=== PATIENT | male | born 1985 | race Caucasian/White ===

== ENCOUNTER 2016-12-21 14:22 | Emergency (ER) | payer BC, OTHER ==
[2016-12-21 14:46] VITALS: BP 122/83; RESP 20; TEMP 98.4
[2016-12-21] MEDS ORDERED: SODIUM CHLORIDE 0.9% 1,000 ML IV ONE (15:14)
[2016-12-21] MEDS ORDERED: RX INFO: IV CONTRAST WAS GIVEN 1 EACH MISC MISCELLANE PRN (15:18)
--- NOTE | 2016-12-21 15:33 | ED ---
General Adult HPI - General Chief complaint: Recheck/Abnormal Lab/Rx Stated complaint: abnormal labs Time Seen by Provider: 12/21/16 14:49 Source: family Mode of arrival: wheelchair Limitations: language barrier, altered mental status, physical limitation - History of Present Illness Initial comments: 11 years old male with multiple medical problems, and developmentally delayed, nonverbal and history of seizure disorder, has a history of cerebral palsy, legally blind incontinence with recurrent UTIs, anxiety, depression. Mom is the main caregiver and she is accompanying the patient she is very frustrated since he is nonverbal but he is able to tell whether he has headache or chest pain or abdominal pain he simply gets very agitated, loud and yells. Notably he is very pleasant he likes to listen to music which is quite soothing to him to be just anxious about with his mother and a quite pleasant man. But lately he has a little worse of agitation where he feels bilaterally moves in his wheelchair expressing anger mother doesn't know whether the CCP and there is pain or worsening., Some basic labs were done and primary care physician's office, it showed very low platelets denies platelets was 7 months that have been normal in the past his hemoglobin and the WBCs are relatively normal range during the his low white count and low hemoglobin that sort of for pancytopenia could've been from secondary infections medications vitamin B12 and folic acid deficiency, multiple other things like myelodysplastic syndrome and mom is seeking answers for those things. Review of system is only through the to the mom and his agitation there is no clear review of system here - Related Data Home Medications Medication Instructions Recorded Confirmed Baclofen [Lioresal] 10 mg PO TID 12/21/16 12/21/16 Ciprofloxacin HCl [Cipro] 500 mg PO Q12HR 12/21/16 12/21/16 Divalproex ER [Depakote ER] 1,000 mg PO HS 12/21/16 12/21/16 Erythromycin Ophth Oint [Romycin 1 applic RIGHT EYE QID 12/21/16 12/21/16 Ophth Oint] cloNIDine HCL [Catapres] 0.1 mg PO BID@0900,1600 12/21/16 12/21/16 cloNIDine HCL [Catapres] 0.2 mg PO HS 12/21/16 12/21/16 prednisoLONE ACETATE 1% OPHTH 1 drops RIGHT EYE TID 12/21/16 12/21/16 [Pred Forte 1%] Previous Rx's Medication Instructions Recorded Levofloxacin [Levaquin] 500 mg PO DAILY #7 tab 12/21/16 Allergies Allergy/AdvReac Type Severity Reaction Status Date / Time phenytoin sodium Allergy Rash/Hives Verified 12/21/16 15:19 [From Dilantin] phenytoin sodium extended Allergy Rash/Hives Verified 12/21/16 15:19 [From Dilantin] sulfamethoxazole Allergy Rash/Hives Verified 12/21/16 15:19 [From Bactrim] trimethoprim [From Bactrim] Allergy Rash/Hives Verified 12/21/16 15:19 Review of Systems ROS Statement: Those systems with pertinent positive or pertinent negative responses have been documented in the HPI. ROS Other: All systems not noted in ROS Statement are negative. Past Medical History Past Medical History: Seizure Disorder Additional Past Medical History / Comment(s): ceberal palsy, brain hemmorrhage with shunt, cog. impaired, blind, History of Any Multi-Drug Resistant Organisms: None Reported Past Surgical History: Hernia Repair, Orthopedic Surgery Additional Past Surgical History / Comment(s): brain shunt,eye Past Psychological History: No Psychological Hx Reported Smoking Status: Never smoker Past Alcohol Use History: None Reported Past Drug Use History: None Reported General Exam - General Exam Comments Initial Comments: General: The patient is awake and alert, noticed agitation noticed he was moving in his chair from side to side and he was quite loud but unfortunately I don't know where a specific problem Skin: Skin is warm and dry and no rashes or lesions are noted. Eye: Because of the lack of cooperation can't examine the eyes Ears, nose, mouth and throat: Mucous membranes are moist and he is drooling but unable to see the oropharynx Neck: The neck is supple, there is no tenderness Cardiovascular: There is a regular rate and rhythm. No murmur, rub or gallop is appreciated. Respiratory: To auscultation bilateral, no wheezing no rhonchi no distress respiratory khan noticed Gastrointestinal: Soft, non-distended, non-tender abdomen without masses or organomegaly noted. There is no rebound or guarding present. Bowel sounds are unremarkable. Back: There is no tenderness to palpation in the midline. There is no obvious deformity. Musculoskeletal: He is wheelchair confined Neurological: He is moving his both arms he has a spastic quadriplegia and cerebral palsy and mom thinks it hasn't changed Psychiatric: Seems agitated, angry, according to mom seems quite different. Limitations: language barrier, altered mental status, physical limitation Course Vital Signs 12/21/16 12/21/16 14:42 18:14 Temperature 98.4 F Pulse Rate 94 75 Respiratory 20 20 Rate Blood Pressure 122/83 O2 Sat by Pulse 97 98 Oximetry Called and spoke to Dr. Torrez anesthesiologist at 1530 and requested some anesthesia coverage since I wanted to do a head CT, chest CT and abdominal CT since he is developed developmentally delayed and has a spastic quadriplegia and cerebral palsy the on the safe side of one anesthesia to sedate him and I'm doing the CT read, chest and abdomen pelvis since his symptoms been going on for 3 months and without sedation motion artifact with decrease the accuracy of the CAT scans He got his labs in our ER, noticed some discrepancy, labs done in the ER today showed hemoglobin quite higher than 11.6 done yesterday at [facility] yesterday did notice that his platelets were 7 today's platelets are normal considering that I'm repeating your blood work again mom was informed about the since patient is a cerebral palsy patient Since labs were repeated, hemoglobin and platelets are normal, head CT abdominal CT and CT chest our sheet fed printer that her H seems to be right place noticed on the head CT he be started on Levaquin 500 milligrams once daily for next 7 days she'll follow-up with Dr. Olmstead for his agitation and is primary doctor for follow-up Medical Decision Making - Lab Data Result diagrams: 12/21/16 18:10 12/21/16 18:10 Lab Results 12/21/16 12/21/16 12/21/16 Range/Units 15:43 15:43 15:43 WBC 6.7 (3.8-10.6) k/uL RBC 5.30 (4.30-5.90) m/uL Hgb 16.4 (13.0-17.5) gm/dL Hct 51.5 (39.0-53.0) % MCV 97.2 (80.0-100.0) fL MCH 31.0 (25.0-35.0) pg MCHC 31.9 (31.0-37.0) g/dL RDW 13.3 (11.5-15.5) % Plt Count 269 (150-450) k/uL Neutrophils % 64 % Lymphocytes % 25 % Monocytes % 6 % Eosinophils % 1 % Basophils % 1 % Neutrophils # 4.3 (1.3-7.7) k/uL Lymphocytes # 1.7 (1.0-4.8) k/uL Monocytes # 0.4 (0-1.0) k/uL Eosinophils # 0.1 (0-0.7) k/uL Basophils # 0.0 (0-0.2) k/uL PT (9.0-12.0) sec INR (<1.2) APTT (22.0-30.0) sec Sodium 141 (137-145) mmol/L Potassium 4.8 (3.5-5.1) mmol/L Chloride 103 (98-107) mmol/L Carbon Dioxide 25 (22-30) mmol/L Anion Gap 13 mmol/L BUN 14 (9-20) mg/dL Creatinine 1.06 (0.66-1.25) mg/dL Est GFR (MDRD) Af Amer >60 (>60 ml/min/1.73 sqM) Est GFR (MDRD) Non-Af >60 (>60 ml/min/1.73 sqM) Glucose 87 (74-99) mg/dL Calcium 9.3 (8.4-10.2) mg/dL Total Bilirubin 0.3 (0.2-1.3) mg/dL AST 25 (17-59) U/L ALT 49 (21-72) U/L Alkaline Phosphatase 73 (38-126) U/L Ammonia (<30) umol/L Total Creatine Kinase 104 (55-170) U/L CK-MB (CK-2) 0.9 (0.0-2.4) ng/mL CK-MB (CK-2) Rel Index 0.9 Troponin I <0.012 (0.000-0.034) ng/mL Total Protein 7.3 (6.3-8.2) g/dL Albumin 4.1 (3.5-5.0) g/dL Urine Color Urine Appearance (Clear) Urine pH (5.0-8.0) Ur Specific [place] (1.001-1.035) Urine Protein (Negative) Urine Glucose (UA) (Negative) Urine Ketones (Negative) Urine Blood (Negative) Urine Nitrite (Negative) Urine Bilirubin (Negative) Urine Urobilinogen (<2.0) mg/dL Ur Leukocyte Esterase (Negative) Urine Opiates Screen (NotDetected) Ur Oxycodone Screen (NotDetected) Urine Methadone Screen (NotDetected) Ur Propoxyphene Screen (NotDetected) Ur Barbiturates Screen (NotDetected) U Tricyclic Antidepress (NotDetected) Ur Phencyclidine Scrn (NotDetected) Ur Amphetamines Screen (NotDetected) U Methamphetamines Scrn (NotDetected) U Benzodiazepines Scrn (NotDetected) Urine Cocaine Screen (NotDetected) U Marijuana (THC) Screen (NotDetected) Blood Type Blood Type Recheck Antibody Screen Spec Expiration Date 12/21/16 12/21/16 12/21/16 Range/Units 15:43 15:43 15:43 WBC (3.8-10.6) k/uL RBC (4.30-5.90) m/uL Hgb (13.0-17.5) gm/dL Hct (39.0-53.0) % MCV (80.0-100.0) fL MCH (25.0-35.0) pg MCHC (31.0-37.0) g/dL RDW (11.5-15.5) % Plt Count (150-450) k/uL Neutrophils % % Lymphocytes % % Monocytes % % Eosinophils % % Basophils % % Neutrophils # (1.3-7.7) k/uL Lymphocytes # (1.0-4.8) k/uL Monocytes # (0-1.0) k/uL Eosinophils # (0-0.7) k/uL Basophils # (0-0.2) k/uL PT 10.2 (9.0-12.0) sec INR 1.0 (<1.2) APTT 23.7 (22.0-30.0) sec Sodium (137-145) mmol/L Potassium (3.5-5.1) mmol/L Chloride (98-107) mmol/L Carbon Dioxide (22-30) mmol/L Anion Gap mmol/L BUN (9-20) mg/dL Creatinine (0.66-1.25) mg/dL Est GFR (MDRD) Af Amer (>60 ml/min/1.73 sqM) Est GFR (MDRD) Non-Af (>60 ml/min/1.73 sqM) Glucose (74-99) mg/dL Calcium (8.4-10.2) mg/dL Total Bilirubin (0.2-1.3) mg/dL AST (17-59) U/L ALT (21-72) U/L Alkaline Phosphatase (38-126) U/L Ammonia 13 (<30) umol/L Total Creatine Kinase (55-170) U/L CK-MB (CK-2) (0.0-2.4) ng/mL CK-MB (CK-2) Rel Index Troponin I (0.000-0.034) ng/mL Total Protein (6.3-8.2) g/dL Albumin (3.5-5.0) g/dL Urine Color Urine Appearance (Clear) Urine pH (5.0-8.0) Ur Specific [place] (1.001-1.035) Urine Protein (Negative) Urine Glucose (UA) (Negative) Urine Ketones (Negative) Urine Blood (Negative) Urine Nitrite (Negative) Urine Bilirubin (Negative) Urine Urobilinogen (<2.0) mg/dL Ur Leukocyte Esterase (Negative) Urine Opiates Screen (NotDetected) Ur Oxycodone Screen (NotDetected) Urine Methadone Screen (NotDetected) Ur Propoxyphene Screen (NotDetected) Ur Barbiturates Screen (NotDetected) U Tricyclic Antidepress (NotDetected) Ur Phencyclidine Scrn (NotDetected) Ur Amphetamines Screen (NotDetected) U Methamphetamines Scrn (NotDetected) U Benzodiazepines Scrn (NotDetected) Urine Cocaine Screen (NotDetected) U Marijuana (THC) Screen (NotDetected) Blood Type O Positive Blood Type Recheck No Antibody Screen NEGATIVE Spec Expiration Date 12/24/2016 - 234212/21/16 12/21/16 12/21/16 Range/Units 17:40 18:10 18:10 WBC 6.1 (3.8-10.6) k/uL RBC 5.02 (4.30-5.90) m/uL Hgb 15.4 (13.0-17.5) gm/dL Hct 49.9 (39.0-53.0) % MCV 99.5 (80.0-100.0) fL MCH 30.7 (25.0-35.0) pg MCHC 30.9 L (31.0-37.0) g/dL RDW 13.2 (11.5-15.5) % Plt Count 220 (150-450) k/uL Neutrophils % % Lymphocytes % % Monocytes % % Eosinophils % % Basophils % % Neutrophils # (1.3-7.7) k/uL Lymphocytes # (1.0-4.8) k/uL Monocytes # (0-1.0) k/uL Eosinophils # (0-0.7) k/uL Basophils # (0-0.2) k/uL PT (9.0-12.0) sec INR (<1.2) APTT (22.0-30.0) sec Sodium 140 (137-145) mmol/L Potassium 5.1 (3.5-5.1) mmol/L Chloride 107 (98-107) mmol/L Carbon Dioxide 22 (22-30) mmol/L Anion Gap 11 mmol/L BUN 15 (9-20) mg/dL Creatinine 0.94 (0.66-1.25) mg/dL Est GFR (MDRD) Af Amer >60 (>60 ml/min/1.73 sqM) Est GFR (MDRD) Non-Af >60 (>60 ml/min/1.73 sqM) Glucose 86 (74-99) mg/dL Calcium 9.0 (8.4-10.2) mg/dL Total Bilirubin 0.4 (0.2-1.3) mg/dL AST 25 (17-59) U/L ALT 47 (21-72) U/L Alkaline Phosphatase 75 (38-126) U/L Ammonia (<30) umol/L Total Creatine Kinase (55-170) U/L CK-MB (CK-2) (0.0-2.4) ng/mL CK-MB (CK-2) Rel Index Troponin I (0.000-0.034) ng/mL Total Protein 6.7 (6.3-8.2) g/dL Albumin 3.8 (3.5-5.0) g/dL Urine Color Yellow Urine Appearance Clear (Clear) Urine pH 7.0 (5.0-8.0) Ur Specific [place] 1.035 (1.001-1.035) Urine Protein Trace H (Negative) Urine Glucose (UA) Negative (Negative) Urine Ketones Trace H (Negative) Urine Blood Negative (Negative) Urine Nitrite Negative (Negative) Urine Bilirubin Negative (Negative) Urine Urobilinogen 3.0 (<2.0) mg/dL Ur Leukocyte Esterase Negative (Negative) Urine Opiates Screen Not Detected (NotDetected) Ur Oxycodone Screen Not Detected (NotDetected) Urine Methadone Screen Not Detected (NotDetected) Ur Propoxyphene Screen Not Detected (NotDetected) Ur Barbiturates Screen Not Detected (NotDetected) U Tricyclic Antidepress Not Detected (NotDetected) Ur Phencyclidine Scrn Not Detected (NotDetected) Ur Amphetamines Screen Not Detected (NotDetected) U Methamphetamines Scrn Not Detected (NotDetected) U Benzodiazepines Scrn Not Detected (NotDetected) Urine Cocaine Screen Not Detected (NotDetected) U Marijuana (THC) Screen Not Detected (NotDetected) Blood Type Blood Type Recheck Antibody Screen Spec Expiration Date Disposition Clinical Impression: Encephalitis, Agitation Disposition: HOME SELF-CARE Condition: Good Instructions: Depression (ED) Additional Instructions: She is advised to stop the Cipro and start the Levaquin hopefully that would cover his respiratory disease as well as cystitis Prescriptions: Levofloxacin [Levaquin] 500 mg PO DAILY #7 tab Referrals: Daren Torres MD [Primary Care Provider] - 1-2 days
[2016-12-21 16:29] LABS: Basophils % (A) 1 %; CH 31.3; CHCM 32.4; Eosinophils # (A) 0.1 k/uL (0-0.7); Eosinophils % (A) 1 %; HCT 51.5 % (39.0-53.0); HDW 2.41; HGB 16.4 gm/dL (13.0-17.5); Luc # (Auto) 0.21; Luc % (Auto) 3; Lymphocytes # (A) 1.7 k/uL (1.0-4.8); Lymphocytes % (A) 25 %; MCHC 31.9 g/dL (31.0-37.0); MCV 97.2 fL (80.0-100.0); Mean Platelet Volume 7.1; Monocytes # (A) 0.4 k/uL (0-1.0); Monocytes % (A) 6 %; Neutrophils # (A) 4.3 k/uL (1.3-7.7); Neutrophils % (A) 64 %; RDW 13.3 % (11.5-15.5); WBC 6.7 k/uL (3.8-10.6); WBC (Perox) 5.99
[2016-12-21 16:39] LABS: Partial Thromboplastin Time 23.7 sec (22.0-30.0)
[2016-12-21 16:45] LABS: ALT 49 U/L (21-72); AST 25 U/L (17-59); Alkaline Phosphatase 73 U/L (38-126); Anion Gap 13 mmol/L; Blood Urea Nitrogen 14 mg/dL (9-20); Calcium 9.3 mg/dL (8.4-10.2); Carbon Dioxide 25 mmol/L (22-30); Chloride 103 mmol/L (98-107); Glucose 87 mg/dL (74-99); Non-African American GFR(MDRD) >60 (>60 ml/min/1.73 sqM); Potassium 4.8 mmol/L (3.5-5.1); Sodium 141 mmol/L (137-145); Total Bilirubin 0.3 mg/dL (0.2-1.3); Total Protein 7.3 g/dL (6.3-8.2)
[2016-12-21 16:48] LABS: Creatine Kinase 104 U/L (55-170)
[2016-12-21 16:50] LABS: Prothrombin Time 10.2 sec (9.0-12.0)
[2016-12-21] MEDS ORDERED: MIDAZOLAM 2 MG/2 ML VIAL ONE (16:57)
[2016-12-21] MEDS ORDERED: fentaNYL (PF) 50 MCG/ML 2 ML AMP ONE (16:57)
[2016-12-21 17:01] LABS: Creatine Kinase MB 0.9 ng/mL (0.0-2.4); Troponin I <0.012 ng/mL (0.000-0.034)
--- NOTE | 2016-12-21 17:51 | CT ---
EXAMINATION TYPE: CT brain wo con DATE OF EXAM: 12/21/2016 COMPARISON: 01/07/2014 HISTORY: Behavioral changes CT DLP: 1090.4 mGycm. Automated Exposure Control for Dose Reduction was Utilized. TECHNIQUE: CT scan of the head is performed without contrast. FINDINGS: There is left occipital peritoneal shunt catheter with the tip in the left lateral ventri mikayla. There is no significant hydrocephalus. Left ventricle is larger than the right. Midline is shift ed slightly to the left side. There is left hemisphere cerebral atrophy. Calvarium is intact. There i s some prominence of the occipital horn left lateral ventricle consistent with occipital atrophy. The re is no evidence of intracranial hemorrhage. CONCLUSION: Ventriculoperitoneal shunt catheter appears in good position. Left hemisphere atrophy or hypoplasia. No acute intracranial abnormality. No change compared to old exam.
--- NOTE | 2016-12-21 17:55 | CT ---
EXAMINATION TYPE: CT ChestAbdPelvis w con DATE OF EXAM: 12/21/2016 COMPARISON: NONE HISTORY: Abnormal labs pain CT DLP: 1328.6 mGycm Automated exposure control for dose reduction was used. CONTRAST: CT scan of the chest, abdomen and pelvis is performed without Oral Contrast and with IV Contrast, pat ient injected with 100 mL of Omnipaque 300. FINDINGS: There is mild pulmonary emphysema. There is no pleural effusion. There is no evidence of a pulmonary mass. There is some coarsening of interstitial markings in the lower lung ceballos. There is no mediast inal adenopathy. There are no hilar masses. The bony thorax is intact. Liver spleen gallbladder appear normal. Bile ducts are not dilated. There is no sign of a pancreatic mass. There is no adrenal mass. Left kidney is smaller than the right, there is compensatory hypertrophy of the right kidney. There is no retroperitoneal adenopathy. There is no hydronephrosis. Appendix appea rs normal. There is no sign of a bowel obstruction. There is no ascites. The bladder distends smoothl y. There is no sign of a pelvic mass. I see no bony destructive process. Ventriculoperitoneal shunt c atheter is noted. IMPRESSION: Mild interstitial pulmonary infiltrates in the lower lobes. Mild pulmonary emphysema. No sign of acute abdomen and pelvis. 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
--- NOTE | 2016-12-21 18:05 | XR ---
EXAMINATION TYPE: XR chest 2V DATE OF EXAM: 12/21/2016 COMPARISON: 02/01/1714 HISTORY: Chest pain and altered mental status TECHNIQUE: Frontal and lateral views of the chest are obtained. FINDINGS: There is no heart failure nor confluent pneumonic infiltrate. There are no hilar masses. T here is ventriculoperitoneal shunt catheter on the left side. Costophrenic angles are clear. IMPRESSION: No active cardiopulmonary disease. No change. Normal heart.
[2016-12-21 18:14] LABS: Appearance,Urine Clear (Clear); Bilirubin,Urine Negative (Negative); Glucose,Urine (UA) Negative (Negative); Ketones,Urine Trace (Negative); Leukocyte Esterase,Urine Negative (Negative); Nitrite,Urine Negative (Negative); Protein,Urine Trace (Negative); Specific Gravity,Urine 1.035 (1.001-1.035); UA Billing (MACRO vs. MICRO) CHEM
[2016-12-21 18:15] VITALS: PULSE 75
[2016-12-21 18:27] LABS: CH 31.1; CHCM 31.4; HCT 49.9 % (39.0-53.0); HGB 15.4 gm/dL (13.0-17.5); MCH 30.7 pg (25.0-35.0); MCHC 30.9 g/dL (31.0-37.0); MCV 99.5 fL (80.0-100.0); Mean Platelet Volume 7.2; RBC 5.02 m/uL (4.30-5.90); RDW 13.2 % (11.5-15.5); WBC 6.1 k/uL (3.8-10.6)
[2016-12-21 18:46] LABS: ALT 47 U/L (21-72); AST 25 U/L (17-59); Alkaline Phosphatase 75 U/L (38-126); Anion Gap 11 mmol/L; Blood Urea Nitrogen 15 mg/dL (9-20); Carbon Dioxide 22 mmol/L (22-30); Chloride 107 mmol/L (98-107); Glucose 86 mg/dL (74-99); Non-African American GFR(MDRD) >60 (>60 ml/min/1.73 sqM); Potassium 5.1 mmol/L (3.5-5.1); Sodium 140 mmol/L (137-145); Total Bilirubin 0.4 mg/dL (0.2-1.3); Total Protein 6.7 g/dL (6.3-8.2)
== END 2016-12-21 19:48 | disposition home or self-care (01) ==
LOC: EC 14:22 → EEVIPCON 14:22 → EC 19:48
DX: G04.90 Encephalitis and encephalomyelitis, unspecified (principal); R45.1 Restlessness and agitation; H54.8 Legal blindness, as defined in USA; Z86.69 Personal history of other diseases of the nervous system and sense organs; Z98.2 Presence of cerebrospinal fluid drainage device; Z79.899 Other long term (current) drug therapy; Z88.2 Allergy status to sulfonamides; Z88.8 Allergy status to other drugs, medicaments and biological substances
CPT/HCPCS: 99284; 96360; 96361 ×2; 36415; 86900; 86901; 80053; 82140; 82550; 82553; 84484; 85025; 85027; 85610; 85730; 86850; 81003; 80306; 87086; 71020; 70450; 71260; 74177; J2250; J3010; Q9967

== ENCOUNTER 2018-07-04 07:57 | Day surgery (SDC) | payer BC, OTHER ==
[~2018-07-04 07:57] MED LIST: ALPRAZolam 1 MG TAB PO STA; LIDOCAINE 1% 20 ML VIAL (10MG/ML) FOR IV START INTRADERMA PRN
[2018-07-04] MEDS ORDERED: MIDAZOLAM 2 MG/2 ML VIAL ONE (08:45)
[2018-07-04] MEDS ORDERED: LIDOCAINE 1% INJ 10MG/ML (20 ML MDV) ONE (08:45)
[2018-07-04] MEDS ORDERED: PROPOFOL 10 MG/ML 20 ML VIAL IV ONE (08:45)
[2018-07-04] MEDS: LACTATED RINGERS 1,000 ML IV SCH ×2 (08:50→08:55)
[2018-07-04] MEDS ORDERED: BENZOCAINE SPRAY 1 CAN TOPICAL ONE (08:50)
[2018-07-04 09:11] VITALS: TEMP 97.9
[2018-07-04] MEDS ORDERED: IV FLUID CONTINUATION 1,000 ML IV ONE (09:25)
[2018-07-04 09:28] VITALS: BP 110/70; PULSE 98
[2018-07-04 09:51] VITALS: RESP 20
--- NOTE | 2018-07-04 18:42 | US ---
EXAMINATION TYPE: US abdomen comp/pelvis limited DATE OF EXAM: 07/04/2018 COMPARISON: CT 12/21/2016 CLINICAL HISTORY: R74.8 ELEVATED LIVER ENZYMES. Frequent UTI. Difficult and limited exam due to patie nt being under anesthesia. EXAM MEASUREMENTS: Liver Length: 13.2 cm Gallbladder Wall: 0.2 cm CBD: 0.3 cm Spleen: 12.1 cm Right Kidney: 10.7 x 5.4 x 4.8 cm Left Kidney: 5.4 x 2.6 x 2.6 cm Pancreas: Obscured by bowel gas Liver: Heterogeneous Gallbladder: wnl as visualized CBD: wnl as visualized Spleen: wnl Right Kidney: Hyperechoic area visualized upper pole measuring 1.2 x 1.1 x 1.3 cm Left Kidney: Measuring small. Limited visualization Upper IVC: wnl as visualized Abd Aorta: Proximal portion appears wnl, mid/distal obscured by bowel gas Bladder: wnl Bilateral Jets Seen Yes IMPRESSION: Markedly atrophic or hypoplastic left kidney. No evidence of renal obstruction. No gallst ones or dilated ducts.
== END 2018-07-04 09:52 | disposition home or self-care (01) ==
LOC: PROCWHC3 07:57 → EDSTATUS 09:00 → PROCWHC3 09:52
PROVIDERS: ATTEND Anesthesiology
DX: R74.8 Abnormal levels of other serum enzymes (principal); N39.0 Urinary tract infection, site not specified; Q60.3 Renal hypoplasia, unilateral; G80.0 Spastic quadriplegic cerebral palsy
CPT/HCPCS: 76700; 76857; J2250; J2001; J2704

== ENCOUNTER 2018-07-11 17:49 | Emergency (ER) | payer BC, OTHER ==
[2018-07-11] MEDS ORDERED: ONDANSETRON 4 MG/2 ML VIAL IVP STA (18:16)
[2018-07-11] MEDS ORDERED: SODIUM CHLORIDE 0.9% 1,000 ML IV STA ×2 (18:16)
[2018-07-11] MEDS ORDERED: MORPHINE SULFATE 4 MG/ML SYRINGE IV STA (18:16)
[2018-07-11] MEDS ORDERED: LORazepam 2 MG/ML INJ IM STA (18:18)
[2018-07-11] MEDS ORDERED: HYDROmorphone 1 MG/ML 1 ML SYRINGE IM STA (18:36)
[2018-07-11 19:14] LABS: Basophils # (A) 0.1 k/uL (0-0.2); Basophils % (A) 1 %; Eosinophils # (A) 0.1 k/uL (0-0.7); Eosinophils % (A) 1 %; HCT 46.9 % (39.0-53.0); HGB 15.2 gm/dL (13.0-17.5); Lymphocytes % (A) 29 %; MCH 29.2 pg (25.0-35.0); MCHC 32.5 g/dL (31.0-37.0); MCV 89.8 fL (80.0-100.0); Mean Platelet Volume 6.8; Monocytes # (A) 0.4 k/uL (0-1.0); Monocytes % (A) 6 %; Neutrophils # (A) 4.1 k/uL (1.3-7.7); Neutrophils % (A) 61 %; Platelet Count 389 k/uL (150-450); RBC 5.22 m/uL (4.30-5.90); RDW 13.5 % (11.5-15.5); WBC 6.8 k/uL (3.8-10.6)
--- NOTE | 2018-07-11 19:14 | ED ---
General Adult HPI - General Source: patient, EMS, RN notes reviewed, old records reviewed Mode of arrival: EMS Limitations: language barrier, physical limitation <Elana Bishop - Last Filed: 07/11/18 21:46> <Ezra Amador - Last Filed: 07/12/18 16:46> - General Chief complaint: Recheck/Abnormal Lab/Rx Stated complaint: Pain Time Seen by Provider: 07/11/18 18:03 - History of Present Illness Initial comments: Patient is a 33-year-old male multiple medical problems, developmental delayed, nonverbal. History of seizure disorder, cerebral palsy, is legally blind with incontinence. He said frequent urinary tract infections and recently been taking Cipro. Patient's mom is here with Patient is he's been complaining yelling in pain intermittently for the past 3 weeks. Over the past 24-48 hours and spent persistent. Patient is very agitated and become more loud and yells. Patient's mother initially thought it could be related to anxiety however with multiple distracted activities Patient continuously L and pain. Patient reportedly had elevated liver enzymes for the past lab draw a few weeks ago. Patient's also had multiple eye surgeries, and has been rubbing his left eye. Mother reports that he has not had any significant drainage. She hasn't noticed he is doing this more frequent lately just because of crying from pain. (Elana Bishop) - Related Data Home Medications Medication Instructions Recorded Confirmed Ciprofloxacin HCl [Cipro] 500 mg PO Q12HR 12/21/16 07/11/18 Erythromycin Ophth Oint [Romycin 1 applic RIGHT EYE QID 12/21/16 07/11/18 Ophth Oint] cloNIDine HCL [Catapres] 0.2 mg PO TID 12/21/16 07/11/18 ARIPiprazole [Abilify] 10 mg PO DAILY 07/03/18 07/11/18 Acetaminophen [Tylenol Extra 1,000 mg PO Q6H PRN 07/11/18 07/11/18 Strength] Ciprofloxacin HCl [Ciloxan 0.3%] 1 drops BOTH EYES TID 07/11/18 07/11/18 hydrOXYzine PAMOATE [Vistaril] 25 mg PO TID PRN 07/11/18 07/11/18 Allergies Allergy/AdvReac Type Severity Reaction Status Date / Time phenytoin sodium Allergy Rash/Hives Verified 07/11/18 18:24 [From Dilantin] phenytoin sodium extended Allergy Rash/Hives Verified 07/11/18 18:24 [From Dilantin] Sulfa (Sulfonamide Allergy Rash/Hives Verified 07/11/18 18:24 Antibiotics) sulfamethoxazole Allergy Rash/Hives Verified 07/11/18 18:24 [From Bactrim] trimethoprim [From Bactrim] Allergy Rash/Hives Verified 07/11/18 18:24 Review of Systems ROS Other: All systems not noted in ROS Statement are negative. <Elana Bishop - Last Filed: 07/11/18 21:46> ROS Other: All systems not noted in ROS Statement are negative. <Ezra Amador - Last Filed: 07/12/18 16:46> ROS Statement: Those systems with pertinent positive or pertinent negative responses have been documented in the HPI. Past Medical History Past Medical History: Seizure Disorder Additional Past Medical History / Comment(s): CURRENT: UTI & RIGHT EYE INFECTION. WHEELCHAIR BOUND. ceberal palsy, brain hemmorrhage with shunt, cog. impaired, blind. History of Any Multi-Drug Resistant Organisms: None Reported Past Surgical History: Hernia Repair, Orthopedic Surgery Additional Past Surgical History / Comment(s): HAM STRING RELASES. TOE RECONSTRUCTIONS (ATROPHY). Brain shunt. Eye Past Anesthesia/Blood Transfusion Reactions: No Reported Reaction Past Psychological History: No Psychological Hx Reported Smoking Status: Never smoker Past Alcohol Use History: None Reported Past Drug Use History: None Reported - Past Family History Mother Family Medical History: No Reported History <Elana Bishop - Last Filed: 07/11/18 21:46> General Exam Limitations: language barrier, physical limitation Head exam: Present: atraumatic, normocephalic, normal inspection Eye exam: Present: normal appearance, PERRL, EOMI. Absent: scleral icterus, conjunctival injection, periorbital swelling ENT exam: Present: normal exam, mucous membranes moist Neck exam: Present: normal inspection. Absent: tenderness, meningismus, lymphadenopathy Respiratory exam: Present: normal lung sounds bilaterally. Absent: respiratory distress, wheezes, rales, rhonchi, stridor Cardiovascular Exam: Present: regular rate, normal rhythm, normal heart sounds. Absent: systolic murmur, diastolic murmur, rubs, gallop, clicks GI/Abdominal exam: Present: soft, normal bowel sounds. Absent: distended, tende rness, guarding, rebound, rigid Extremities exam: Present: normal inspection, full ROM, normal capillary refill. Absent: tenderness, pedal edema, joint swelling, calf tenderness Back exam: Present: normal inspection Neurological exam: Present: alert, oriented X3, CN II-XII intact Psychiatric exam: Present: normal affect, normal mood Skin exam: Present: warm, dry, intact, normal color. Absent: rash <Elana Bishop - Last Filed: 07/11/18 21:46> - General Exam Comments Initial Comments: 33-year-old male, developmentally delayed. Yelling intermittently for agitation. (Elana Bishop) Course Vital Signs 07/11/18 07/11/18 07/11/18 18:00 20:05 20:10 Temperature Pulse Rate 103 H 104 H 78 Respiratory 18 19 18 Rate Blood Pressure 159/108 137/87 140/82 O2 Sat by Pulse 95 97 100 Oximetry 07/11/18 07/11/18 07/11/18 20:16 20:20 20:35 Temperature Pulse Rate 68 91 104 H Respiratory 17 17 18 Rate Blood Pressure 147/78 156/100 159/109 O2 Sat by Pulse 100 100 98 Oximetry 07/11/18 07/11/18 07/11/18 21:16 21:25 22:15 Temperature 98.7 F Pulse Rate 102 H 118 H Respiratory 17 18 Rate Blood Pressure 149/95 149/95 O2 Sat by Pulse 96 98 Oximetry Procedures - Procedural Sedation Procedural Sedation Start Time: 20:09 Procedural Sedation Stop Time: 20:40 Indications: diagnostic imaging procedure ASA Class: I Mallampati Airway Score: 2 Preparation: teletypesetter monitor applied, pulse oximeter, capnometry used IV Etomidate Dose (mgs): 15 Complications: none Patient Tolerated Procedure: well <Ezra Amador - Last Filed: 07/12/18 16:46> Medical Decision Making - Lab Data Result diagrams: 07/11/18 18:59 07/11/18 18:59 - Radiology Data Radiology results: report reviewed <Elana Bishop - Last Filed: 07/11/18 21:46> - Lab Data Result diagrams: 07/11/18 18:59 07/11/18 18:59 <Ezra Amador - Last Filed: 07/12/18 16:46> - Lab Data Lab Results 07/11/18 07/11/18 07/11/18 Range/Units 18:59 18:59 18:59 WBC 6.8 (3.8-10.6) k/uL RBC 5.22 (4.30-5.90) m/uL Hgb 15.2 (13.0-17.5) gm/dL Hct 46.9 (39.0-53.0) % MCV 89.8 (80.0-100.0) fL MCH 29.2 (25.0-35.0) pg MCHC 32.5 (31.0-37.0) g/dL RDW 13.5 (11.5-15.5) % Plt Count 389 (150-450) k/uL Neutrophils % 61 % Lymphocytes % 29 % Monocytes % 6 % Eosinophils % 1 % Basophils % 1 % Neutrophils # 4.1 (1.3-7.7) k/uL Lymphocytes # 2.0 (1.0-4.8) k/uL Monocytes # 0.4 (0-1.0) k/uL Eosinophils # 0.1 (0-0.7) k/uL Basophils # 0.1 (0-0.2) k/uL PT 9.6 (9.0-12.0) sec INR 0.9 (<1.2) APTT 23.4 (22.0-30.0) sec Sodium 139 (137-145) mmol/L Potassium 4.4 (3.5-5.1) mmol/L Chloride 104 (98-107) mmol/L Carbon Dioxide 25 (22-30) mmol/L Anion Gap 10 mmol/L BUN 10 (9-20) mg/dL Creatinine 0.88 (0.66-1.25) mg/dL Est GFR (CKD-EPI)AfAm >90 (>60 ml/min/1.73 sqM) Est GFR (CKD-EPI)NonAf >90 (>60 ml/min/1.73 sqM) Glucose 100 H (74-99) mg/dL Calcium 9.4 (8.4-10.2) mg/dL Total Bilirubin 0.7 (0.2-1.3) mg/dL AST 36 (17-59) U/L ALT 52 (21-72) U/L Alkaline Phosphatase 134 H (38-126) U/L Total Protein 7.3 (6.3-8.2) g/dL Albumin 4.5 (3.5-5.0) g/dL Amylase 117 H (30-110) U/L Lipase 107 (23-300) U/L Urine Color Urine Appearance (Clear) Urine pH (5.0-8.0) Ur Specific [place] (1.001-1.035) Urine Protein (Negative) Urine Glucose (UA) (Negative) Urine Ketones (Negative) Urine Blood (Negative) Urine Nitrite (Negative) Urine Bilirubin (Negative) Urine Urobilinogen (<2.0) mg/dL Ur Leukocyte Esterase (Negative) 07/11/18 Range/Units 20:32 WBC (3.8-10.6) k/uL RBC (4.30-5.90) m/uL Hgb (13.0-17.5) gm/dL Hct (39.0-53.0) % MCV (80.0-100.0) fL MCH (25.0-35.0) pg MCHC (31.0-37.0) g/dL RDW (11.5-15.5) % Plt Count (150-450) k/uL Neutrophils % % Lymphocytes % % Monocytes % % Eosinophils % % Basophils % % Neutrophils # (1.3-7.7) k/uL Lymphocytes # (1.0-4.8) k/uL Monocytes # (0-1.0) k/uL Eosinophils # (0-0.7) k/uL Basophils # (0-0.2) k/uL PT (9.0-12.0) sec INR (<1.2) APTT (22.0-30.0) sec Sodium (137-145) mmol/L Potassium (3.5-5.1) mmol/L Chloride (98-107) mmol/L Carbon Dioxide (22-30) mmol/L Anion Gap mmol/L BUN (9-20) mg/dL Creatinine (0.66-1.25) mg/dL Est GFR (CKD-EPI)AfAm (>60 ml/min/1.73 sqM) Est GFR (CKD-EPI)NonAf (>60 ml/min/1.73 sqM) Glucose (74-99) mg/dL Calcium (8.4-10.2) mg/dL Total Bilirubin (0.2-1.3) mg/dL AST (17-59) U/L ALT (21-72) U/L Alkaline Phosphatase (38-126) U/L Total Protein (6.3-8.2) g/dL Albumin (3.5-5.0) g/dL Amylase (30-110) U/L Lipase (23-300) U/L Urine Color Light Yellow Urine Appearance Clear (Clear) Urine pH 6.0 (5.0-8.0) Ur Specific [place] 1.021 (1.001-1.035) Urine Protein Negative (Negative) Urine Glucose (UA) Negative (Negative) Urine Ketones Negative (Negative) Urine Blood Negative (Negative) Urine Nitrite Negative (Negative) Urine Bilirubin Negative (Negative) Urine Urobilinogen <2.0 (<2.0) mg/dL Ur Leukocyte Esterase Negative (Negative) 07/11/18 20:45 EKG performed at 20/20 forces or sinus rhythm normal EKG. Ventricular rate of 87 bpm. CA interval is 186 ms. QRS duration 84 ms. QT QTC 370/445 ms. (Elana Bishop) - Radiology Data CT of the head and C-spine are negative for any acute fracture dislocation. No acute intracranial hemorrhage. There is shunt catheter for left posterior approach, similar compared to prior CT and 12/21/2016. The ventricles and sulcal pattern and sister nose are normal. (Elana Bishop) Disposition Is patient prescribed a controlled substance at d/c from ED?: No Time of Disposition: 21:49 <Elana Bishop - Last Filed: 07/11/18 21:46> <Ezra Amador - Last Filed: 07/12/18 16:46> Clinical Impression: Cognitive and behavioral changes, Muscle contracture Disposition: HOME SELF-CARE Condition: Good Additional Instructions: Follow-up with your primary care doctor tomorrow. Return to the emergency department if any alarming signs or symptoms occur. Monitor for any fevers. Continue taking Motrin and Tylenol. Referrals: Daren Torres MD [Primary Care Provider] - 1-2 days
[2018-07-11 19:18] LABS: ALT 52 U/L (21-72); AST 36 U/L (17-59); Albumin 4.5 g/dL (3.5-5.0); Alkaline Phosphatase 134 U/L (38-126); Amylase 117 U/L (30-110); Anion Gap 10 mmol/L; Blood Urea Nitrogen 10 mg/dL (9-20); Calcium 9.4 mg/dL (8.4-10.2); Carbon Dioxide 25 mmol/L (22-30); Chloride 104 mmol/L (98-107); Glucose 100 mg/dL (74-99); Lipase 107 U/L (23-300); Potassium 4.4 mmol/L (3.5-5.1); Sodium 139 mmol/L (137-145); Total Bilirubin 0.7 mg/dL (0.2-1.3); Total Protein 7.3 g/dL (6.3-8.2)
[2018-07-11 19:21] LABS: INR 0.9 (<1.2); Partial Thromboplastin Time 23.4 sec (22.0-30.0); Prothrombin Time 9.6 sec (9.0-12.0)
[2018-07-11] MEDS: ETOMIDATE 2 MG/ML 10 ML VIAL IVP STA ×2 (20:09→20:15)
[2018-07-11 20:40] LABS: Appearance,Urine Clear (Clear); Bilirubin,Urine Negative (Negative); Blood,Urine Negative (Negative); Color,Urine Light Yellow; Glucose,Urine (UA) Negative (Negative); Ketones,Urine Negative (Negative); Leukocyte Esterase,Urine Negative (Negative); Nitrite,Urine Negative (Negative); Protein,Urine Negative (Negative); Specific Gravity,Urine 1.021 (1.001-1.035); Urobilinogen,Urine <2.0 mg/dL (<2.0)
[2018-07-11 21:17] VITALS: BP 149/95
--- NOTE | 2018-07-11 21:19 | CT ---
EXAMINATION TYPE: CT brain cspine wo con DATE OF EXAM: 07/11/2018 COMPARISON: 12/21/2016 HISTORY: Pain CT DLP: 1485.4 mGycm Automated exposure control for dose reduction was used. TECHNIQUE: CT scan of the head and cervical spine are performed without contrast. FINDINGS: Shunt catheter enters from a left posterior approach to have its tip in the subarachnoid sp annabella 1 cm left of the interhemispheric falx, superior to the lateral ventricles. This is similar when compared to the prior CT of 12/21/2016. Also similar when compared to the prior study of the ventricle s and sulcal pattern and basal cisterns. There is no acute intracranial hemorrhage, mass effect, or m idline shift identified. The paranasal sinuses and middle ear cavities and mastoid sinus air cells ar e clear. Cervical spine is visualized in its entirety from C1 through upper thoracic levels and demonstrates s atisfactory alignment without evidence of acute fracture or dislocation. Prevertebral soft tissue ap pears within normal limits. The C1-C2 articulation is unremarkable. IMPRESSION: 1. There is no acute fracture or dislocation evident in the cervical spine. 2. No acute intracranial hemorrhage, mass effect, or midline shift is seen.
[2018-07-11 21:26] VITALS: TEMP 98.7
--- NOTE | 2018-07-11 21:28 | CT ---
EXAMINATION TYPE: CT ChestAbdPelvis w con DATE OF EXAM: 07/11/2018 COMPARISON: 12/21/2016 HISTORY: pain CT DLP: 1051 mGy-cm Automated exposure control for dose reduction was used. IV CONTRAST: 100 mL of Isovue 300. FINDINGS: LUNGS: The lungs are grossly clear, there is no concerning parenchymal mass or nodule identified. The re is no pleural effusion or pneumothorax seen. The tracheobronchial tree is patent. MEDIASTINUM: There are no greater than 1 cm hilar or mediastinal lymph nodes. There is mild cardiomeg nenita. There is no pericardial effusion. No acute aortic or pulmonary arterial findings. OTHER: No additional significant abnormality is seen. PERITONEAL CAVITY: No pneumoperitoneum and no peritoneal fluid. LIVER/GB: No significant abnormality is appreciated. PANCREAS: No significant abnormality is seen. SPLEEN: No significant abnormality is seen. ADRENALS: No significant abnormality is seen. KIDNEYS: No significant abnormality is seen. BOWEL: No significant abnormality is seen. Appendix has normal appearance. REPRODUCTIVE ORGANS: No gross abnormality seen. LYMPH NODES: No greater than 1 cm abdominal or pelvic lymph nodes are appreciated. OSSEOUS STRUCTURES: No significant abnormality is seen. OTHER: No acute vascular findings. IMPRESSION: No acute osseous fracture, abnormal fluid collection, or evidence of solid organ injury i n the thorax, abdomen, or pelvis.
[2018-07-11] MEDS ORDERED: MORPHINE SULFATE 4 MG/ML SYRINGE IVP STA (21:45)
[2018-07-11] MEDS ORDERED: ORPHENADRINE 30 MG/ML 2 ML VIAL IVP STA (21:45)
[2018-07-11 22:19] VITALS: PULSE 118; RESP 18
== END 2018-07-11 22:31 | disposition home or self-care (01) ==
LOC: EC 17:49
DX: M62.40 Contracture of muscle, unspecified site (principal); R41.89 Other symptoms and signs involving cognitive functions and awareness; R46.89 Other symptoms and signs involving appearance and behavior; R62.50 Unspecified lack of expected normal physiological development in childhood; G80.9 Cerebral palsy, unspecified; H54.8 Legal blindness, as defined in USA; Z79.899 Other long term (current) drug therapy; Z88.1 Allergy status to other antibiotic agents; Z88.2 Allergy status to sulfonamides; Z88.3 Allergy status to other anti-infective agents; Z88.8 Allergy status to other drugs, medicaments and biological substances; Z99.3 Dependence on wheelchair
CPT/HCPCS: 99285; 99152; 99153; 36415; 93005; 80053; 82150; 83690; 85025; 85610; 85730; 81003; 87086; 72125; 70450; 71260; 74177; 96374; 96375 ×2; 96376; 96361 ×3; 96372 ×2; 51701; J2060; J2270; J2360; J2405; J1170; Q9967

== ENCOUNTER 2018-12-17 06:28 | Emergency (ER) | payer BC, OTHER ==
[2018-12-17 06:45] VITALS: TEMP 97.9
[2018-12-17] MEDS ORDERED: DIAZEPAM 5 MG/ML 2 ML INJ IVP STA (06:48)
[2018-12-17] MEDS ORDERED: HYDROmorphone 1 MG/ML 1 ML SYRINGE IVP STA (06:48)
[2018-12-17] MEDS ORDERED: ONDANSETRON 4 MG/2 ML VIAL IVP STA (06:48)
--- NOTE | 2018-12-17 06:55 | ED ---
General Adult HPI <Adeel Dominguez - Last Filed: 12/17/18 11:41> - General Source: family, EMS, RN notes reviewed Mode of arrival: EMS Limitations: language barrier, altered mental status, physical limitation <Giovani Anderson - Last Filed: 12/17/18 12:36> - General Chief complaint: Recheck/Abnormal Lab/Rx Stated complaint: insomnia Time Seen by Provider: 12/17/18 06:33 - History of Present Illness Initial comments: This is a 33-year-old male presents emergency Department with mother via EMS with chief complaint of pain, behavioral changes. Patient has extensive past medical history which includes seizure disorder, cerebral palsy, no mental delay, nonverbal, legally blind with right eye removal and incontinence. Mom states he has been screaming for last 24 hours she has tried multiple medications with no relief. On states that he normally does not like this though he's had bouts of uncontrolled pain with different reasons which enzymes includes UTIs, sciatic pain, other infections. Mom denies any reported fevers or chills no URI symptoms. She thought maybe is Dieter patient given 2 supposi tories with no relief of any symptoms but having regular bowel movements. Mom states that he is very agitated, yells and she cannot get a clear answer why at this point. (Giovani Anderson) - Related Data Home Medications Medication Instructions Recorded Confirmed cloNIDine HCL [Catapres] 0.2 mg PO TID 12/21/16 12/17/18 ARIPiprazole [Abilify] 10 mg PO DAILY 07/03/18 12/17/18 Acetaminophen [Tylenol Extra 1,000 mg PO Q6H PRN 07/11/18 12/17/18 Strength] Cefuroxime Axetil [Ceftin] 500 mg PO BID 12/17/18 12/17/18 Previous Rx's Medication Instructions Recorded Ciprofloxacin HCl [Cipro] 500 mg PO Q12HR #14 tablet 12/17/18 HYDROcodone/APAP 10-325MG [[place] 1 tab PO Q6HR PRN 3 Days #12 tab 12/17/18 10-325] Allergies Allergy/AdvReac Type Severity Reaction Status Date / Time phenytoin sodium Allergy Rash/Hives Verified 12/17/18 07:52 [From Dilantin] phenytoin sodium extended Allergy Rash/Hives Verified 12/17/18 07:52 [From Dilantin] Sulfa (Sulfonamide Allergy Anaphylaxis Verified 12/17/18 07:52 Antibiotics) ,RASH/HIVES sulfamethoxazole Allergy Rash/Hives Verified 12/17/18 07:52 [From Bactrim] trimethoprim [From Bactrim] Allergy Rash/Hives Verified 12/17/18 07:52 Review of Systems ROS Other: All systems not noted in ROS Statement are negative. <Adeel Dominguez - Last Filed: 12/17/18 11:41> ROS Other: All systems not noted in ROS Statement are negative. <Giovani Anderson - Last Filed: 12/17/18 12:36> ROS Statement: Those systems with pertinent positive or pertinent negative responses have been documented in the HPI. Past Medical History Past Medical History: Seizure Disorder Additional Past Medical History / Comment(s): WHEELCHAIR BOUND. ceberal palsy, brain hemmorrhage with shunt, cog. impaired, blind. History of Any Multi-Drug Resistant Organisms: None Reported Past Surgical History: Hernia Repair, Orthopedic Surgery Additional Past Surgical History / Comment(s): HAM STRING RELASES. TOE RECONSTRUCTIONS (ATROPHY). Brain shunt. Eye removed (right) 10/01 Past Anesthesia/Blood Transfusion Reactions: No Reported Reaction Past Psychological History: No Psychological Hx Reported Smoking Status: Never smoker Past Alcohol Use History: None Reported Past Drug Use History: None Reported - Past Family History Mother Family Medical History: No Reported History <Giovani Anderson - Last Filed: 12/17/18 12:36> General Exam Limitations: language barrier, altered mental status, physical limitation General appearance: alert, in no apparent distress Head exam: Present: atraumatic, normocephalic, normal inspection Eye exam: Present: PERRL, EOMI. Absent: normal appearance (Right eye removal), scleral icterus, conjunctival injection, periorbital swelling ENT exam: Present: normal exam, mucous membranes moist Neck exam: Present: normal inspection, full ROM. Absent: tenderness, men ingismus, lymphadenopathy Respiratory exam: Present: normal lung sounds bilaterally. Absent: respiratory distress, wheezes, rales, rhonchi, stridor Cardiovascular Exam: Present: normal rhythm, tachycardia, normal heart sounds. Absent: systolic murmur, diastolic murmur, rubs, gallop, clicks GI/Abdominal exam: Present: soft, normal bowel sounds. Absent: distended, tenderness, guarding, rebound, rigid Extremities exam: Present: other (Right-sided contracture) Neurological exam: Present: alert. Absent: oriented X3, CN II-XII intact Skin exam: Present: warm, dry, intact, normal color. Absent: rash <Giovani Anderson - Last Filed: 12/17/18 12:36> Course Vital Signs 12/17/18 12/17/18 12/17/18 06:36 07:42 09:00 Temperature 97.9 F Pulse Rate 124 H 113 H 98 Respiratory 30 H 18 18 Rate Blood Pressure 104/65 125/83 130/86 O2 Sat by Pulse 95 95 95 Oximetry 12/17/18 12/17/18 12/17/18 10:36 11:08 11:09 Temperature Pulse Rate 99 102 H 112 H Respiratory 16 16 16 Rate Blood Pressure 117/90 146/94 154/105 O2 Sat by Pulse 95 95 95 Oximetry 12/17/18 12/17/18 12/17/18 11:14 11:19 11:24 Temperature Pulse Rate 110 H 113 H 110 H Respiratory 16 16 16 Rate Blood Pressure 126/96 140/102 138/98 O2 Sat by Pulse 93 L 95 95 Oximetry 12/17/18 12/17/18 12/17/18 11:29 11:30 11:35 Temperature Pulse Rate 102 H 102 H 102 H Respiratory 16 16 16 Rate Blood Pressure 136/91 136/91 139/76 O2 Sat by Pulse 95 95 95 Oximetry 12/17/18 12/17/18 11:45 12:00 Temperature Pulse Rate 100 105 H Respiratory 16 16 Rate Blood Pressure 138/74 132/83 O2 Sat by Pulse 95 95 Oximetry Procedures - Procedural Sedation Procedural Sedation Start Time: 11:00 Procedural Sedation Stop Time: 11:25 Indications: diagnostic imaging procedure Mallampati Airway Score: 2 Preparation: can filler applied, pulse oximeter, capnometry used, supplemental O2 applied IV Etomidate Dose (mgs): 14 Complications: none Patient Tolerated Procedure: well, no complications <Adeel Dominguez - Last Filed: 12/17/18 11:41> Medical Decision Making - Lab Data Result diagrams: 12/17/18 07:22 12/17/18 07:22 <Adeel Dominguez - Last Filed: 12/17/18 11:41> - Lab Data Result diagrams: 12/17/18 07:22 12/17/18 07:22 <Giovani Anderson - Last Filed: 12/17/18 12:36> - Medical Decision Making Patient presented for increasing pain, change in behavior. Patient had a thorough workup including labs, urinalysis, CT of his brain, facial region, abdomen with no acute findings. I did explain to mother that I do not have an acute cause and this could be related to muscle skeletal nerve pain. Patient's symptoms are improved at this time I will try the patient's pain medication taken follow-up and pain is controlled. Mother questions that he's had chronic urinary tract infections and CT did show possibility of cystitis patient we placed antibiotic until urine culture is resulted (Giovani Anderson) - Lab Data Lab Results 12/17/18 12/17/18 12/17/18 Range/Units 07:22 07:22 09:01 WBC 10.5 (3.8-10.6) k/uL RBC 5.29 (4.30-5.90) m/uL Hgb 16.4 (13.0-17.5) gm/dL Hct 48.5 (39.0-53.0) % MCV 91.6 (80.0-100.0) fL MCH 30.9 (25.0-35.0) pg MCHC 33.7 (31.0-37.0) g/dL RDW 13.0 (11.5-15.5) % Plt Count 358 (150-450) k/uL Neutrophils % 73 % Lymphocytes % 18 % Monocytes % 6 % Eosinophils % 1 % Basophils % 0 % Neutrophils # 7.6 (1.3-7.7) k/uL Lymphocytes # 1.9 (1.0-4.8) k/uL Monocytes # 0.6 (0-1.0) k/uL Eosinophils # 0.1 (0-0.7) k/uL Basophils # 0.0 (0-0.2) k/uL Sodium 145 (137-145) mmol/L Potassium 4.1 (3.5-5.1) mmol/L Chloride 108 H (98-107) mmol/L Carbon Dioxide 25 (22-30) mmol/L Anion Gap 12 mmol/L BUN 9 (9-20) mg/dL Creatinine 1.00 (0.66-1.25) mg/dL Est GFR (CKD-EPI)AfAm >90 (>60 ml/min/1.73 sqM) Est GFR (CKD-EPI)NonAf >90 (>60 ml/min/1.73 sqM) Glucose 100 H (74-99) mg/dL Calcium 9.6 (8.4-10.2) mg/dL Total Bilirubin 0.8 (0.2-1.3) mg/dL AST 40 (17-59) U/L ALT 85 H (21-72) U/L Alkaline Phosphatase 96 (38-126) U/L Creatine Kinase 428 H (55-170) U/L Total Protein 8.1 (6.3-8.2) g/dL Albumin 4.7 (3.5-5.0) g/dL Lipase 44 (23-300) U/L Urine Color Yellow Urine Appearance Clear (Clear) Urine pH 5.5 (5.0-8.0) Ur Specific [place] 1.033 (1.001-1.035) Urine Protein 1+ H (Negative) Urine Glucose (UA) Negative (Negative) Urine Ketones Negative (Negative) Urine Blood Negative (Negative) Urine Nitrite Negative (Negative) Urine Bilirubin Negative (Negative) Urine Urobilinogen 2.0 (<2.0) mg/dL Ur Leukocyte Esterase Negative (Negative) Urine RBC <1 (0-5) /hpf Urine WBC 1 (0-5) /hpf Urine Bacteria Rare H (None) /hpf Urine Mucus Rare H (None) /hpf Disposition <Adeel Dominguez - Last Filed: 12/17/18 11:41> Is patient prescribed a controlled substance at d/c from ED?: Yes When asked, does pt state using other controlled substances?: Yes If prescribed controlled substance>3 days was MAPS reviewed?: Prescribed <3 Days If opioid is for acute pain is fill amount 7 days or less?: Yes If Rx opioid, was Start Talking consent form obtained?: Yes Time of Disposition: 12:36 <Giovani Anderson - Last Filed: 12/17/18 12:36> Clinical Impression: Pain, Musculoskeletal pain, Cerebral palsy Disposition: HOME SELF-CARE Condition: Stable Instructions (If sedation given, give patient instructions): Muscle Spasm (ED), Musculoskeletal Pain (ED), Moderate Sedation (ED) Additional Instructions: Please return to the Emergency Department if symptoms worsen or any other concerns. Prescriptions: Ciprofloxacin HCl [Cipro] 500 mg PO Q12HR #14 tablet HYDROcodone/APAP 10-325MG [[place] 10-325] 1 tab PO Q6HR PRN 3 Days #12 tab PRN Reason: pain Referrals: Daren Torres MD [Primary Care Provider] - 1-2 days
[2018-12-17 07:48] LABS: Basophils % (A) 0 %; Eosinophils # (A) 0.1 k/uL (0-0.7); Eosinophils % (A) 1 %; HCT 48.5 % (39.0-53.0); HGB 16.4 gm/dL (13.0-17.5); Lymphocytes # (A) 1.9 k/uL (1.0-4.8); Lymphocytes % (A) 18 %; MCH 30.9 pg (25.0-35.0); MCHC 33.7 g/dL (31.0-37.0); MCV 91.6 fL (80.0-100.0); Mean Platelet Volume 6.5; Monocytes # (A) 0.6 k/uL (0-1.0); Monocytes % (A) 6 %; Neutrophils # (A) 7.6 k/uL (1.3-7.7); Neutrophils % (A) 73 %; Platelet Count 358 k/uL (150-450); RBC 5.29 m/uL (4.30-5.90); WBC 10.5 k/uL (3.8-10.6)
[2018-12-17 08:13] LABS: ALT 85 U/L (21-72); AST 40 U/L (17-59); African American GFR (CKD) >90 (>60 ml/min/1.73 sqM); Albumin 4.7 g/dL (3.5-5.0); Alkaline Phosphatase 96 U/L (38-126); Anion Gap 12 mmol/L; Blood Urea Nitrogen 9 mg/dL (9-20); Calcium 9.6 mg/dL (8.4-10.2); Carbon Dioxide 25 mmol/L (22-30); Chloride 108 mmol/L (98-107); Creatine Kinase 428 U/L (55-170); Glucose 100 mg/dL (74-99); Potassium 4.1 mmol/L (3.5-5.1); Sodium 145 mmol/L (137-145); Total Bilirubin 0.8 mg/dL (0.2-1.3); Total Protein 8.1 g/dL (6.3-8.2)
[2018-12-17] MEDS ORDERED: SODIUM CHLORIDE 0.9% 1,000 ML IV ONE (08:32)
[2018-12-17] MEDS ORDERED: KETOROLAC 30 MG/ML 1 ML VIAL IVP STA (08:41)
[2018-12-17] MEDS ORDERED: HYDROmorphone 0.5 MG/0.5 ML SYRINGE IVP STA ×2 (08:41→10:23)
[2018-12-17 09:28] LABS: Appearance,Urine Clear (Clear); Bacteria,Urine Rare /hpf; Bilirubin,Urine Negative (Negative); Blood,Urine Negative (Negative); Color,Urine Yellow; Glucose,Urine (UA) Negative (Negative); Ketones,Urine Negative (Negative); Leukocyte Esterase,Urine Negative (Negative); Mucus,Urine Rare /hpf; Nitrite,Urine Negative (Negative); PH, Urine 5.5 (5.0-8.0); Protein,Urine 1+ (Negative); RBC,Urine <1 /hpf (0-5); Specific Gravity,Urine 1.033 (1.001-1.035)
[2018-12-17] MEDS: ETOMIDATE 2 MG/ML 10 ML VIAL IV STA ×2 (10:31→11:09)
[2018-12-17] MEDS ORDERED: ETOMIDATE 2 MG/ML 10 ML VIAL IVP STA (11:16)
--- NOTE | 2018-12-17 11:50 | CT ---
EXAMINATION TYPE: CT abdomen pelvis wo con DATE OF EXAM: 12/17/2018 COMPARISON: 07/11/2018 HISTORY: 33-year-old male with abdominal pain special needs arms down CT DLP: 1210.9 mGycm. Automated exposure control for dose reduction was used. TECHNIQUE: Contiguous axial scanning of the abdomen and pelvis without IV contrast. Coronal and sagit aquilino reconstructions performed. FINDINGS: PSYCHOMETRIST shunt catheter is demonstrated. Heart normal size without pericardial effusion. Underlying emphysematous change and stranding areas o f atelectasis or scarring. No pleural effusion. Noncontrast appearance of the liver, gallbladder, adrenal glands, right kidney, spleen, and pancreas shows no gross abnormality. Atrophic left kidney redemonstrated. No dilated small bowel, free fluid, or free air. Some breathing motion artifact in the mid abdomen. Normal appendix. Mild stool burden without pericolonic inflammatory change. Redundant sigmoid colon. No mesenteric or retroperitoneal lymphadenopathy. Bladder nondistended but demonstrating circumferential wall thickening. Prostate gland measures 3.7 c m wide. No abnormal fluid collection in the pelvis or pelvic lymphadenopathy. Bones: Mild degenerative changes of the hips. No osseous destructive process. IMPRESSION: 1. Circumferential bladder wall thickening. Correlate to exclude cystitis. 2. COPD. Query smoking history. 3. Otherwise, no acute inflammatory process identified in the abdomen or pelvis to explain the patie nt's symptoms on this noncontrast study.
--- NOTE | 2018-12-17 11:55 | CT ---
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 Coronal and sagittal r econstructions performed. CT DLP: 1051 mGycm Automated exposure control for dose reduction was used. FINDINGS: Left parietal approach SECURITIES CLERK shunt catheter is redemonstrated with tip in the left paramedian region jus t above the level of the lateral ventricles. Some surrounding encephalomalacia and gliosis is present . Volume loss in the left hemicranium with ex vacuo enlargement of the left lateral ventricle and 1.2 c m of leftward midline shift, largely unchanged from prior exam. No effacement of basal subarachnoid cisterns or herniation. There is no evidence of acute intracranial hemorrhage or acute ischemic change. Brooks-white matter di stinction is preserved. 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 IMPRESSION: 1. Left parietal approach shunt catheter with stable tip demonstrated at the left paramedian level ju st above the lateral ventricles. 2. Stable volume loss and ex vacuo left lateral ventricle enlargement and corresponding shift of the midline toward the left. Leftward midline shift measures approximately 1.2 cm, largely unchanged from 07/11/2018. 3. No acute change identified.
--- NOTE | 2018-12-17 12:00 | CT ---
EXAMINATION TYPE: CT sinus w con DATE OF EXAM: 12/17/2018 COMPARISON: HISTORY: blind cerebral palsy sedated recent infection CT DLP: 533.6 mGycm Automated exposure control for dose reduction was used. CONTRAST: CT scan of the facial bones is performed with IV Contrast, patient injected with 100 mL of Isovue 300 . TECHNIQUE: CT scan of the sinuses is performed without contrast, axial images are obtained, coronal r eformatted images are also reviewed. FINDINGS: The paranasal sinuses including the frontal, ethmoid, sphenoid, and maxillary sinuses bila terally are well-aerated tiny 5 mm mucous retention cyst within the right maxillary sinus and frontal sinus is hypoplastic. Minimal mucosal thickening involving bilateral maxillary antrum.. The ostiome atal complex is patent bilaterally on the coronal images. Calcification of the left orbit and apparen t postsurgical change involving the right globe. There is be evidence of a degree of subfalcine herni ation the right lateral ventricle which is similar to the prior study. Cortical loss involving the le ft parietal lobe also stable. Asymmetric prominence of the left occipital horn is again noted and chastity ears similar to the prior exam. Visualized portion of mastoid air cells show no abnormal opacification. Shunt catheter enters from a left posterior approach to have its tip in the subarachnoid space 1 cm left of the interhemispheric falx, superior to the lateral ventricles. This is similar when compared to the prior. IMPRESSION: 1. Minimal changes of chronic sinusitis. 2. Exact position of the HEAD WOOD GRINDER shunt catheter may lie outside the ventricular system should be correlate d clinically. Persistent distortion of the lateral ventricles with suggestion of subfalcine herniatio n from right to left similar to the prior CT scan. Correlate clinically.
[2018-12-17 13:09] VITALS: BP 123/74; PULSE 80; RESP 18
== END 2018-12-17 13:10 | disposition home or self-care (01) ==
LOC: EC 06:28
DX: G80.9 Cerebral palsy, unspecified (principal); N39.0 Urinary tract infection, site not specified; R00.0 Tachycardia, unspecified; H54.8 Legal blindness, as defined in USA; R41.82 Altered mental status, unspecified; Z88.2 Allergy status to sulfonamides; Z88.8 Allergy status to other drugs, medicaments and biological substances; Z79.899 Other long term (current) drug therapy; Z90.01 Acquired absence of eye; Z86.69 Personal history of other diseases of the nervous system and sense organs; Z98.2 Presence of cerebrospinal fluid drainage device; Z99.3 Dependence on wheelchair
CPT/HCPCS: 36415; 80053; 82550; 83690; 85025; 81001; 70450; 74176; 70487; 99284; 99152; 99153; 96374; 96375 ×3; 96376 ×2; 96361; J3360; J2405; J1885; J1170 ×2; Q9967